=== PATIENT | male | born 1955 | race Caucasian/White ===

== ENCOUNTER 2018-01-03 08:17 | Emergency (ER) | payer BC ==
[2018-01-03 08:29] VITALS: BP 138/82; PULSE 85; TEMP 98.2; BMI 28.1
--- NOTE | 2018-01-03 09:11 | PDOC ---
History of Present Illness - General Chief Complaint: Wound Stated Complaint: POST OP, REDNESS TO AFFECTED AREA Time Seen by Provider: 01/03/18 08:41 History Source: Patient - History of Present Illness Timing/Duration: other Severity: moderate Associated Symptoms: denies: chest pain, fever/chills, malaise, shortness of breath, weakness Past History - Past Medical History Allergies/Adverse Reactions: Allergies Allergy/AdvReac Type Severity Reaction Status Date / Time No Known Allergies Allergy Verified 01/03/18 08:24 Home Medications: Ambulatory Orders Unobtainable [Unobtainable] 01/03/18 COPD: No DVT: No GI Disorders: Yes (reflux) HTN: Yes Hypercholesterolemia: (on medication for abnormal stress test) - Immunization History Immunization Up to Date: Yes - Suicide/Smoking/Psychosocial Hx Smoking History: Never smoked Hx Alcohol Use: Yes Drug/Substance Use Hx: No Review of Systems - Review of Systems Constitutional: No: Chills, Fever, Malaise Respiratory: No: Shortness of Breath Cardiac (ROS): No: Chest Pain, Lightheadedness, Palpitations ABD/GI: No: Nausea, Vomiting, Abdominal cramping : No: Dysuria *Physical Exam - Vital Signs Last Vital Signs Temp Pulse Resp BP Pulse Ox 98.2 F 85 18 138/82 97 01/03/18 08:24 01/03/18 08:24 01/03/18 08:24 01/03/18 08:24 01/03/18 08:24 - Physical Exam General Appearance: Yes: Appropriately Dressed. No: Apparent Distress HEENT: positive: Normal Voice Neck: positive: Supple Respiratory/Chest: positive: Lungs Clear, Normal Breath Sounds. negative: Respiratory Distress Cardiovascular: positive: Regular Rate, S1, S2 Gastrointestinal/Abdominal: positive: Normal Bowel Sounds, Soft, Other ( localized area of tender induration to R groin, no pulsatile mass/bruit, 8x4cm area of tender, non-blanchable erythema to medial, proximal R thigh). negative : Tender, Distended, Guarding, Rebound Integumentary: positive: Dry, Warm Neurologic: positive: Fully Oriented, Alert, Normal Mood/Affect ED Treatment Course - LABORATORY CBC & Chemistry Diagram: 01/03/18 10:30 01/03/18 10:30 - RADIOLOGY Radiology Studies Ordered: Category Date Time Status DUPLEX ART. LEGS- LIMITED US [US] Stat Ultrasound 01/03/18 09:03 Ordered Medical Decision Making - Medical Decision Making 01/03/18 09:05 62-year-old male history of hyperlipidemia, here with right groin pain and swelling 5 days after right sided diagnostic cardiac catheter done at [facility] , which of note, did not show any obstruction as per patient. Patient states he was doing fine after procedure until yesterday when he noticed redness/pain/ swelling to R groin. Denies fever, chills, n/v, malaise, bd pain, or dysuria. No chest pain, shortness of breath, palpitations, leg pain or swelling. See exam R/o hematoma vs pseudoaneurysm (though no palpable thrill/bruit) vs fistula ( though no thrills/bruits) vs clot though less likely vs infxn to groin s/p R cath Stable and well ada w/ R groin induration w/ 8x4cm area of non-blanchable tender erythema, no pulsatile mass/bruit -pain control -labs -US 01/03/18 09:14 01/03/18 13:23 Labs unremarkable. Ultrasound negative for pseudoaneurysm or R fluid collection. There is soft tissue edema seen. Patient also evaluated by ED attending, who agrees that findings most likely represent hematoma and, less likely infection. Patient discharged with instructions to take tylenol as needed and to refrain from heavy lifting for the next week or 2. Patient given copy of labs and ultrasound report to discuss with outside sheet combining operator tomorrow *DC/Admit/Observation/Transfer Diagnosis at time of Disposition: Right groin pain - Discharge Dispostion Disposition: HOME Condition at time of disposition: Improved - Referrals - Patient Instructions Printed Discharge Instructions: DI for Hematoma (Bruise) Additional Instructions: Your ultrasound did not show a blood clot, a pseudoaneurysm (blood collection that forms between layers of an artery) or any fluid collection. There is some soft tissue swelling/redness in your right groin area which could represent a hematoma (bruise). This condition can resolve over a period of days to weeks. Please avoid strenuous activity or heavy lifting within the first week following your catheterization. No surgical repair is usually necessary for hematoma. Take tylenol as needed for pain Please follow-up with your sheet combining operator this week You were given a copy of ypur US report to discuss with your doctor - Post Discharge Activity Forms/Work/School Notes: Back to Work
[2018-01-03 10:40] LABS: BASO % 1.2 % (0-2.0); EOS % 5.3 % (0-4.5); HEMATOCRIT 41.3 % (35.4-49); HEMOGLOBIN 13.9 GM/dL (11.7-16.9); LYMPH % 30.6 % (8-40); MCH 31.4 pg (25.7-33.7); MCHC 33.7 g/dl (32.0-35.9); MEAN PLT VOLUME 8.8 fl (7.5-11.1); NEUT % 53.9 % (42.8-82.8); PLATELET COUNT 160 K/MM3 (134-434); RBC 4.44 M/mm3 (4.00-5.60); WHITE BLOOD COUNT 4.9 K/mm3 (4.0-10.0)
[2018-01-03 10:42] LABS: URINE APPEARANCE CLEAR; URINE BILIRUBIN NEGATIVE (<2.0 mg/dL); URINE BLOOD NEGATIVE (NEGATIVE); URINE COLOR LTYELLOW; URINE GLUCOSE (UA) NEGATIVE (NEGATIVE); URINE KETONE NEGATIVE (NEGATIVE); URINE LEUK ESTERASE NEGATIVE (NEGATIVE); URINE NITRITE NEGATIVE (NEGATIVE); URINE PROTEIN NEGATIVE (NEGATIVE); URINE UROBILINOGEN NEGATIVE mg/dL (0.2-1.0)
[2018-01-03 10:57] LABS: ALBUMIN 3.7 g/dl (3.4-5.0); ANION GAP 6 (8-16); BLOOD UREA NITROGEN 22 mg/dL (7-18); CALCIUM 8.6 mg/dL (8.5-10.1); CHLORIDE 107 mmol/L (98-107); CO2 27 mmol/L (21-32); GLUCOSE,RANDOM 84 mg/dL (74-106); POTASSIUM 4.6 mmol/L (3.5-5.1); SODIUM 140 mmol/L (136-145)
[2018-01-03 11:03] LABS: ALK PHOS 56 U/L (45-117); BILIRUBIN,TOTAL 0.4 mg/dL (0.2-1.0); CREATININE 0.8 mg/dL (0.7-1.3); SGOT/AST 29 U/L (15-37); SGPT/ALT 51 U/L (12-78); TOT PROT 7.3 g/dl (6.4-8.2)
[2018-01-03 11:12] LABS: INR 1.19 (0.82-1.09); PROTHROMBIN TIME (PATIENT) 13.5 SEC (9.98-11.88)
[2018-01-03] MEDS ORDERED: morphine CARPU-JECT 4 MG/1 ML DISP.SYRIN IVPUSH ONE (11:39)
[2018-01-03] MEDS ORDERED: morphine SULFATE 4 MG/ML VIAL ONE (11:57)
== END 2018-01-03 13:30 | disposition home or self-care (01) ==
LOC: JER 08:17
PROC: 3E033NZ Introduction of Analgesics, Hypnotics, Sedatives into Peripheral Vein, Percutaneous Approach (ICD-10-PCS; principal; 2018-01-03)
DX: R10.31 Right lower quadrant pain (principal); Z98.61 Coronary angioplasty status; E78.00 Pure hypercholesterolemia, unspecified; K21.9 Gastro-esophageal reflux disease without esophagitis
CPT/HCPCS: 36415; 80053; 81003; 85025; 85610; 86850; 86900; 86901; 93926-TC; 99282-25

== ENCOUNTER 2024-09-06 12:07 | Emergency (ER) | payer OTHER ==
[2024-09-06 12:16] VITALS: RESP 18; TEMP 97.4; BMI 30.5
[2024-09-06 14:02] VITALS: BP 148/78; PULSE 72
== END 2024-09-06 14:02 | disposition home or self-care (01) ==
LOC: JER 12:07
DX: I10 Essential (primary) hypertension (principal)
CPT/HCPCS: 93005; 93010; 99283-25